=== PATIENT | male | born 1980 | race Caucasian/White ===

== ENCOUNTER 2018-12-22 12:40 | Emergency (ER) | payer OTHER ==
[~2018-12-22] VITALS: Ht 182.9 cm; Wt 122.5 kg
[2018-12-22 12:45] VITALS: BP 139/73
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
--- NOTE | 2018-12-22 12:53 | NUR ---
Patient ambulated to bed 9 with family. RN evaluating patient at bedside.
--- NOTE | 2018-12-22 13:18 | NUR ---
Dr. Gonzalez evaluating patient at bedside.
[2018-12-22] MEDS ORDERED: cefTRIAXone 1,000 MG in LIDOCAINE 1% ***ER ONLY *** 2.1 ML IM ONE (13:25)
[2018-12-22] MEDS ORDERED: traMADol 50 MG TAB PO ONE (13:25)
[2018-12-22] MEDS ORDERED: NEOMYCIN/POLYMYXIN/BACITRACIN 0.9 GM/1 PKT TP ONE (13:25)
[2018-12-22] MEDS ORDERED: IBUPROFEN 800 MG TAB PO ONE (13:25)
[2018-12-22] MEDS ORDERED: cefTRIAXone 1,000 MG VIAL ONE (13:43)
[2018-12-22] MEDS ORDERED: LIDOCAINE MPF 1% - 5 mL VIAL 5 ML ONE (13:46)
--- NOTE | 2018-12-22 13:58 | NUR ---
BROADCAST OPERATIONS DIRECTOR AT BEDSIDE.
--- NOTE | 2018-12-22 14:28 | NUR ---
PT AAO X4. FULL CLEAR SPEECH. CONVERSATING APPROPRIATELY. VSS
--- NOTE | 2018-12-22 14:43 | NUR ---
DR GRACIA SPOKE TO PT ABOUT X-RAY RESULTS.
[2018-12-22 14:58] VITALS: BP 120/71
--- NOTE | 2018-12-22 14:58 | NUR ---
Patient discharged with v/s stable. Written and verbal after care instructions given and explained. Patient alert, oriented and verbalized understanding of instructions. Ambulatory with steady gait. All questions addressed prior to discharge. ID band removed. Patient advised to follow up with PMD. Rx of Flagyl, Motrin given. Patient educated on indication of medication including possible reaction and side effects. Opportunity to ask questions provided and answered.
== END 2018-12-22 14:58 | disposition home or self-care (01) ==
LOC: MED 12:40
DX: S61.331A Puncture wound without foreign body of left index finger with damage to nail, initial encounter (principal); W45.0XXA Nail entering through skin, initial encounter; Y93.89 Activity, other specified; Y92.89 Other specified places as the place of occurrence of the external cause; Y99.8 Other external cause status
CPT/HCPCS: 29130; 73140; 90471; 90715; 96372; 99284; J0696; J2001

== ENCOUNTER 2023-01-19 07:20 | Day surgery (SDC) | payer OTHER ==
[~2023-01-19] VITALS: Ht 182.9 cm; Wt 106.6 kg
[2023-01-19] MEDS ORDERED: fentaNYL citrate 0.05 MG/ML VIAL ONE (08:56)
[2023-01-19] MEDS ORDERED: diphenhydrAMINE 50 MG/ML VIAL ONE (08:56)
[2023-01-19] MEDS ORDERED: LIDOCAINE 2% 100 MG/5 ML UJET TP ONE (08:57)
[2023-01-19] MEDS ORDERED: MIDAZOLAM 5 MG/5 ML VIAL ONE (08:57)
[2023-01-19] MEDS ORDERED: fentaNYL citrate 0.05 MG/ML VIAL IVP ONE (10:30)
[2023-01-19] MEDS ORDERED: MIDAZOLAM 2 MG/2 ML VIAL IVP ONE (10:30)
== END 2023-01-19 11:50 | disposition home or self-care (01) ==
LOC: MDS 07:20 → MMU 07:23 → MDS 11:50
PROVIDERS: ATTEND Surgery
DX: Z12.11 Encounter for screening for malignant neoplasm of colon (principal); Z93.2 Ileostomy status; K52.9 Noninfective gastroenteritis and colitis, unspecified; K57.20 Diverticulitis of large intestine with perforation and abscess without bleeding; Z98.0 Intestinal bypass and anastomosis status
CPT/HCPCS: 45378; J2250; J3010; J1200